=== PATIENT | female | born 1960 | race Hispanic/Latino ===

== ENCOUNTER 2018-10-27 08:23 | Day surgery (SDC) | payer OTHER ==
[~2018-10-27 08:23] MED LIST: ANCEF/STERILE WATER 2 GM/20 ML 2 GM/20 ML SYRINGE IV NR; NACL 0.9% 1000 ML 1,000 ML IV SCH
[2018-10-27 09:26] LABS: Hematocrit 30.6 % (30.3-42.9); Hemoglobin 10.1 gm/dl (10.1-14.3); Mean Corpuscular HGB Conc 33 % (30-34); Platelet Count 330 K/mm3 (140-440); Red Blood Count 4.67 M/mm3 (3.65-5.03); Red Cell Distribution Width 17.5 % (13.2-15.2)
[2018-10-27 09:33] LABS: Mean Corpuscular Volume 66 fl (79-97)
[2018-10-27 09:46] LABS: BUN/Creatinine Ratio 14; Blood Urea Nitrogen 10 mg/dL (7-17); Calcium 8.8 mg/dL (8.4-10.2); Hemolysis Index 1
[2018-10-27 09:49] LABS: INR 0.99 (0.87-1.13)
[2018-10-27] MEDS ORDERED: HEPARIN/NS 5000 UNIT/500ML(CATH LAB) 1,000 ML IR ONE (12:17)
[2018-10-27] MEDS ORDERED: HEPARIN 10,000 UNITS/10 ML ONE (12:18)
[2018-10-27] MEDS: VERSED ONE ×2 (13:27→14:01)
[2018-10-27] MEDS: XYLOCAINE 2% INFILTRATI ONE ×2 (13:27→13:45)
[2018-10-27] MEDS: SUBLIMAZE ONE ×2 (13:27→14:01)
[2018-10-27] MEDS ORDERED: TORADOL ONE (14:03)
--- NOTE | 2018-10-27 14:13 | Short Stay Summary ---
Short Stay Documentation Date of service: 10/27/18 - History Principal diagnosis: venous compression, pelvic congestion Past Medical History: other (venous hypertension of BLE and pelvis) Past Surgical History: Other (venous ablations) Social history: no significant social history - Allergies and Medications Current Medications: Allergies promethazine [From Phenergan] Adverse Reaction (Verified 10/27/18 08:56) Unknown Home Medications Medication Instructions Recorded Confirmed Last Taken Type Estradiol/Levonorgestrel [Climara 1 patch TRANSDERMA 1XW 10/27/18 10/27/18 10/25/18 History Pro Patch] 1 Rosuvastatin (Nf) [Crestor] 5 mg PO QHS 10/27/18 10/27/18 10/24/18 History 5mg Sitagliptin Phosphate [Januvia] 100 mg PO DAILY 10/27/18 10/27/18 10/26/18 History 100mg buPROPion XL [Wellbutrin XL] 150 mg PO DAILY 10/27/18 10/27/18 10/26/18 History 150mg metFORMIN [Glucophage] 1,000 mg PO BID 10/27/18 10/27/18 10/25/18 History 1000mg Active Medications Cefazolin Sodium (Ancef/Sterile Water 2 Gm/20 Ml) 2 gm in 20 mls @ 80 mls/hr IV PREOP NR; Protocol Sodium Chloride (Nacl 0.9% 1000 Ml) 1,000 mls @ 42 mls/hr IV DIRECT SANTA - Physical exam General appearance: no acute distress Integumentary: no rash, no growths HEENT: Atraumatic Lungs: Normal air movement Breasts: deferred Heart: Regular rate Gastrointestinal: normal Female Genitourinary: deferred Rectal Exam: deferred Extremities: no ischemia - Brief post op/procedure progress note Date of procedure: 10/27/18 Pre-op diagnosis: Venous compression Post-op diagnosis: same Procedure: BLE venogram, IVUS, gonadal vein evaluation, venoplasty and stenting Anesthesia: local Surgeon: LISHA DIAS Estimated blood loss: none Condition: stable - Disposition Condition at discharge: Good Disposition: [id number] TO HOME OR SELFCARE Short Stay Discharge Plan Activity: advance as tolerated Weight Bearing Status: Weight Bear as Tolerated Diet: regular Wound: keep clean and dry, per your surgeon's advice Follow up with: ELISABETH WATSON MD [Primary Care Provider] - 7 Days
--- NOTE | 2018-10-27 14:28 | Operative Report ---
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 The patient was brought to the angiographic suite and placed in supine position on the examination table. Initial ultrasound evaluation of the groin demonstrated patent femoral veins proximally. The patient's groins were prepped and draped in the usual sterile fashion. 1% lidocaine was used for anesthesia. Under ultrasound guidance, the right femoral vein proximally was cannulated using a 7 cm 18-gauge needle. A 0.035 guidewire was advanced centrally. The needle was removed and a 5 [place]uvian sheath advanced into the femoral vein. Access to the left femoral vein proximally was obtained in a similar fashion and an additional 5 [place]uv[place] sheath was placed. Contrast was injected through both sheaths which demonstrates significant compression of the common iliac veins bilaterally. Additionally, there is retrograde filling of the left gonadal vein in an attempt to drain the left lower extremity. A C2 cobra catheter was advanced over a guidewire and advanced through the right sheath. Together the guidewire and catheter were used to cannulate the left renal vein. The catheter was advanced into the midportion left renal vein and angiography performed. This demonstrates the origin of the left gonadal vein however, there is not significant dilatation of the left gonadal vein. The catheter and guidewire were then removed. The 5 Peruvian sheaths were upsized to 10 [place]uvian sheaths bilaterally and intravascular ultrasound performed first through the right sheath and second through the left sheath. Imaged vessels including the IVC, right common iliac vein, right external iliac vein, right common femoral vein, left common iliac vein, left external iliac vein and left common femoral vein. This demonstrate 80-90% stenosis of the left common iliac vein proximally and 70-80% stenosis of the right common iliac vein proximally. On the left, there is drainage through numerous pelvic collaterals including the left gonadal vein. A 16 x 90 mm wall stent was advanced through the right sheath, a 16 x 90 mm wall stent was advanced through the left sheath. The stents were deployed increasing passion extending from the IVC to the external iliac veins laterally. Since proceeded using 14 mm balloons. Post stent placement imaging demonstrated reduction of the stenosis to less than 10% and nonvisualization of the pelvic collaterals including the left gonadal vein. At this point, the catheters, guidewires and sheaths were removed and hemostasis achieved using manual compression. Sterile compression dressing were applied. The patient tolerated the procedure well. There were no immediate post procedure complications. Conscious sedation was performed under the guidance of radiologic nursing. Continuous cardiopulmonary monitoring was utilized. Impression: 1) Bilateral lower extremity venogram demonstrating compression of the left common iliac vein and right common iliac vein with numerous pelvic collaterals draining these veins. 2) Intravascular ultrasound of the IVC, bilateral common iliac veins, bilateral external iliac veins in bilateral common femoral veins demonstrating 80-90% stenosis involving the left common iliac vein and 70-80% stenosis involving the right common iliac vein. 3) Venoplasty and stent placement of both common iliac veins with stents deployed increasing kissing fashion from the IVC to the external iliac veins. Post stent placement imaging demonstrated less than 10% stenosis. 4) Evaluation of the left gonadal vein. Left gonadal vein is dilated secondary to compression of the left common iliac vein. Upon treatment of the left common iliac vein, there is nonvisualization of the left gonadal vein and a decision was made not to embolyse at this time.
[2018-10-27 14:38] LABS: Band Neutrophils # (Manual) 0.2 K/mm3; Basophils % (Manual) 0 % (0.0-1.8); Total Cells Counted 100
[2018-10-27 14:39] LABS: Anisocytosis 1+; Hypochromasia 2+; Ovalocytes Few; Poikilocytosis Few
[2018-10-27 15:24] VITALS: BP 121/71
[2018-10-27] MEDS ORDERED: NORCO 5/325 PO ONE (15:31)
== END 2018-10-27 15:30 | disposition home or self-care (01) ==
LOC: CATHLABREC 08:23
PROVIDERS: ATTEND Radiology Diagnostic Radiology
DX: I87.1 Compression of vein (principal); I87.2 Venous insufficiency (chronic) (peripheral); N94.89 Other specified conditions associated with female genital organs and menstrual cycle; M19.90 Unspecified osteoarthritis, unspecified site; F41.9 Anxiety disorder, unspecified; F32.9 Major depressive disorder, single episode, unspecified; D64.9 Anemia, unspecified; G62.9 Polyneuropathy, unspecified; Z79.899 Other long term (current) drug therapy; Z79.84 Long term (current) use of oral hypoglycemic drugs; Z88.8 Allergy status to other drugs, medicaments and biological substances; Z98.51 Tubal ligation status; Z98.84 Bariatric surgery status; Z98.890 Other specified postprocedural states
CPT/HCPCS: 36012; 36415; 37238; 37239; 37252; 37253; 75822; 75831; 76937; 80048; 85007; 85025; 85610; 85730; 99156; 99157; C1725; C1753; C1769; C1876; C1894; J1644; J1885; J2250; J3010; J7030; Q9967